=== PATIENT | female | born 1950 | race African-American/Black ===

== ENCOUNTER 2017-03-29 13:03 | Emergency (ER) | payer OTHER ==
[~2017-03-29] VITALS: Wt 100.0 kg
--- NOTE | 2017-03-29 13:17 | ERD ---
ER Documentation Chief Complaint Chief Complaint Right leg infection HPI The patient is a 76-year-old female, presenting to the ER because of acute on chronic right leg infection. She has been taking Cipro for the last 13 days with response, she was therefore sent to the ER for further evaluation. She denies fever, chills, neck pain, chest pain, abdominal pain, vomiting, dysuria, diarrhea. She does not smoke nor drink Past medical history: History of CHF, chronic kidney disease, diabetes mellitus Past surgical history: Lower extremity skin graft ROS All systems reviewed and are negative except as per history of present illness. Allergies Allergies: Coded Allergies: Penicillins (Verified Allergy, Severe, 03/29/17) Physical Exam Vitals Vital Signs Date Time Temp Pulse Resp B/P Pulse Ox O2 Delivery O2 Flow Rate FiO2 03/29/17 16:00 109 20 134/66 97 Nasal Cannula 2.0 03/29/17 15:18 93 14 94 Nasal Cannula 3.0 03/29/17 14:02 Nasal Cannula 2 03/29/17 13:16 98.8 80 18 136/67 95 Physical Exam Const: No acute distress. Head: Atraumatic. Eyes: Normal Conjunctiva. ENT: Normal External Ears, Nose and Mouth. Neck: Full range of motion. No meningismus. Resp: Clear to auscultation bilaterally. Cardio: Regular rate and rhythm. Abd: Soft, non distended, normal bowel sounds, non tender. Skin: No petechiae or rashes. Back: No midline or flank tenderness. Ext: Right lower extremity is with chronic skin discoloration with small vesicles, vague bilateral calf tenderness Neur: Awake and alert. No focal deficit Psych: Normal Mood and Affect. Result Diagram: 03/29/17 1350 03/29/17 1350 Results 24 hrs Laboratory Tests Test 03/29/17 13:50 03/29/17 14:45 03/29/17 15:40 White Blood Count 8.310^3/ul Red Blood Count 4.1910^6/ul Hemoglobin 11.6g/dl Hematocrit 39.5% Mean Corpuscular Volume 94.3fl Mean Corpuscular Hemoglobin 27.7pg Mean Corpuscular Hemoglobin Concent 29.4g/dl Red Cell Distribution Width 16.4% Platelet Count 19465^3/UL Mean Platelet Volume 11.0fl Neutrophils % 64.5% Lymphocytes % 20.7% Monocytes % 11.4% Eosinophils % 2.1% Basophils % 0.8% Nucleated Red Blood Cells % 0.0/100WBC Neutrophils # 5.310^3/ul Lymphocytes # 1.710^3/ul Monocytes # 0.910^3/ul Eosinophils # 0.210^3/ul Basophils # 0.110^3/ul Nucleated Red Blood Cells # 0.010^3/ul Prothrombin Time 12.9Sec Prothrombin Time Ratio 1.0 INR International Normalized Ratio 0.97 Activated Partial Thromboplast Time 30.8Sec Sodium Level 145mmol/L Potassium Level 5.6mmol/L Chloride Level 103mmol/L Carbon Dioxide Level 31mmol/L Anion Gap 17 Blood Urea Nitrogen 60mg/dl Creatinine 2.06mg/dl Glucose Level 168mg/dl Lactic Acid Level 1.7mmol/L 1.2mmol/L Calcium Level 9.3mg/dl Total Bilirubin 0.1mg/dl Direct Bilirubin 0.00mg/dl Indirect Bilirubin 0.1mg/dl Aspartate Amino Transf (AST/SGOT) 41IU/L Alanine Aminotransferase (ALT/SGPT) 28IU/L Alkaline Phosphatase 191IU/L Total Protein 9.4g/dl Albumin 4.4g/dl Globulin 5.00g/dl Albumin/Globulin Ratio 0.88 Urine Color STRAW Urine Clarity CLEAR Urine pH 6.0 Urine Specific [place] 1.008 Urine Ketones NEGATIVEmg/dL Urine Nitrite NEGATIVEmg/dL Urine Bilirubin NEGATIVEmg/dL Urine Urobilinogen NEGATIVEmg/dL Urine Leukocyte Esterase NEGATIVELeu/ul Urine Microscopic RBC 1/HPF Urine Microscopic WBC 2/HPF Urine Squamous Epithelial Cells FEW/HPF Urine Bacteria FEW/HPF Urine Hemoglobin NEGATIVEmg/dL Urine Glucose NEGATIVEmg/dL Urine Total Protein 1+mg/dl Current Medications Medications (Trade) Dose Ordered Sig/Eleazar Route PRN Reason Start Time Stop Time Status Last Admin Dose Admin Vancomycin HCl 250 ml @ 125 mls/hr ONCE IVPB 03/29/17 15:00 03/29/17 16:59 DC 03/29/17 15:52 Meropenem/Sodium Chloride (Merrem 500mg/50 ml(Pmx)) 50 ml @ 100 mls/hr ONCE STAT IVPB 03/29/17 15:04 03/29/17 15:33 DC 03/29/17 15:15 Morphine Sulfate (morphine) 4 mg ONCE STAT IV 03/29/17 15:05 03/29/17 15:07 DC 03/29/17 15:15 Ondansetron HCl (Zofran Inj) 4 mg ONCE STAT IV 03/29/17 15:05 03/29/17 15:07 DC 03/29/17 15:15 Sodium Polystyrene Sulfonate (Kayexalate) 30 gm ONCE STAT PO 03/29/17 15:06 03/29/17 15:10 DC 03/29/17 15:52 Albuterol (Proventil 0.5% (Neb)) 15 mg ONCE STAT INH 03/29/17 15:06 03/29/17 15:10 DC 03/29/17 15:18 Procedures/MDM [place] [id number] Radiology Main Line: [phone] DIAGNOSTIC IMAGING REPORT Patient: CHRISTELLE KEARNS : 1950 Age: 66 Sex: F MR #: [id number] DOS: 03/29/17 1335 Ordering MD: RUFUS DECKER MD Location: E/R Room/Bed: PROCEDURE: US Lower extremity Venous. CLINICAL INDICATION: Lower extremity pain and swelling TECHNIQUE: Multiple sonographic images of the bilateral lower extremity deep venous system was obtained utilizing grayscale, color-flow, compressive sonography and doppler imaging with augmentation. The images were reviewed on a PACS workstation. COMPARISON: None. FINDINGS: There is normal compressibility and flow within the bilateral common femoral, superficial femoral and popliteal veins. The tibial veins are not well visualized. IMPRESSION: No sonographic evidence for deep venous thrombosis. Tibial veins not well visualized. RPTAT: AA .Zeeshan Couch MD, MD Date Time Electronically viewed and signed by .Zeeshan Couch MD, MD on 03/29/2017 14:45 .P/ CC: RUFUS DECKER MD [address] [address] Radiology Main Line: [phone] DIAGNOSTIC IMAGING REPORT Patient: CHRISTELLE KEARNS : 1950 Age: 66 Sex: F MR #: [id number] DOS: 03/29/17 1335 Ordering MD: RUFUS DECKER MD Location: E/R Room/Bed: PROCEDURE: XR Chest. CLINICAL INDICATION: Sepsis . TECHNIQUE: Single frontal chest x-ray. COMPARISON: None. FINDINGS: The lungs are clear of acute infiltrates, edema, effusions, or masses. Low lung volumes with mild bibasilar atelectasis is present. Calcific atherosclerosis of the aorta is present.. The cardiomediastinal silhouette is unremarkable. The osseous structures are intact. IMPRESSION: No acute cardiopulmonary disease. Low lung volumes with mild bibasilar atelectasis. RPTAT: GG .Ezekiel Parra MD, MD Date Time Electronically viewed and signed by .Ezekiel Parra MD, MD on 03/29/2017 14:06 .L/ CC: RUFUS DECKER MD EKG: Read by emergency physician Rate/Rhythm: Normal Sinus Rhythm 82 beats/min QRS, ST, T-waves: No ST elevation, no T inversion, Septal Q waves Impression: Abnormal EKG MEDICAL MAKING DECISION: Patient is a 66-year-old female, presenting to the ER because of acute on chronic right lower extremity cellulitis, failed outpatient therapy, acute hyperkalemia. She was treated with vancomycin IV, Zosyn meropenem IV for acute on chronic cellulitis, morphine 2 mg IV for pain, Zofran formulary for nausea and albuterol 15 mg nebulizer over one hour and Kayexalate 30 g p.o. for acute hyperkalemia with good response. Critical Care: Time: 35 minutes excluding all billable procedures. Treatments/Evaluations: Close monitoring and treatment of unstable vital signs, cardiorespiratory, and neurologic status, while maintaining tight balance of fluid, respiratory, and cardiac interventions. The differential diagnoses considered include but are not limited to cellulitis , abscess, DVT, necrotizing fasciitis Departure Diagnosis: Primary Impression: Cellulitis of right lower limb Additional Impressions: Hyperkalemia Anemia Condition: Stable Comments I discussed the findings with the patient. I discussed the patient with her physician Dr. Parr at 4:20 pm who was made aware of the lab, the treatment, the patient condition. She accepted the patient and the patient is transferre to [facility] via ambulance RUFUS DECKER MD Mar 29, 2017 13:17
--- NOTE | 2017-03-29 14:06 | RADRPT ---
PROCEDURE: XR Chest. CLINICAL INDICATION: Sepsis . TECHNIQUE: Single frontal chest x-ray. COMPARISON: None. FINDINGS: The lungs are clear of acute infiltrates, edema, effusions, or masses. Low lung volumes with mild bi basilar atelectasis is present. Calcific atherosclerosis of the aorta is present.. The cardiomedias tinal silhouette is unremarkable. The osseous structures are intact. IMPRESSION: No acute cardiopulmonary disease. Low lung volumes with mild bibasilar atelectasis. RPTAT: GG .Ezekiel Parra MD, Date Time Electronically viewed and signed by .Ezekiel Parra MD, on 03/29/2017 14:06 .L/
[2017-03-29 14:08] LABS: BASOPHIL # 0.1 10^3/ul (0.0-0.1); BASOPHILS % 0.8 % (0.0-2.0); EOSINOPHILS # 0.2 10^3/ul (0.0-0.5); EOSINOPHILS % 2.1 % (0.0-7.0); HEMATOCRIT 39.5 % (37.0-47.0); HEMOGLOBIN 11.6 g/dl (12.0-16.0); LYMPHOCYTES # 1.7 10^3/ul (0.8-2.9); LYMPHOCYTES % 20.7 % (15.0-51.0); MEAN CORPUSCULAR HEMOGLOBIN 27.7 pg (29.0-33.0); MEAN CORPUSCULAR HGB CONC 29.4 g/dl (32.0-37.0); MEAN CORPUSCULAR VOLUME 94.3 fl (82.0-101.0); MONOCYTE # 0.9 10^3/ul (0.3-0.9); MONOCYTES % 11.4 % (0.0-11.0); NEUTROPHIL # 5.3 10^3/ul (1.6-7.5); NEUTROPHILS % 64.5 % (39.0-77.0); PLATELET COUNT 213 10^3/UL (140-415); RED BLOOD COUNT 4.19 10^6/ul (4.20-5.40); RED CELL DISTRIBUTION WIDTH 16.4 % (11.5-14.5); WHITE BLOOD COUNT 8.3 10^3/ul (4.8-10.8)
[2017-03-29 14:23] LABS: INR 0.97; PROTIME 12.9 Sec (12.2-14.2)
[2017-03-29 14:24] LABS: PARTIAL THROMBOPLASTIN TIME 30.8 Sec (25.0-35.0)
[2017-03-29 14:25] LABS: ALBUMIN 4.4 g/dl (3.3-4.9); ALBUMIN/GLOBULIN RATIO 0.88; BILIRUBIN,INDIRECT 0.1 mg/dl (0-1.1); BILIRUBIN,TOTAL 0.1 mg/dl (0.2-1.3); CALCIUM 9.3 mg/dl (8.4-10.2); CREATININE 2.06 mg/dl (0.44-1.00); POTASSIUM 5.6 mmol/L (3.5-5.1); TOTAL PROTEIN 9.4 g/dl (6.1-8.1)
--- NOTE | 2017-03-29 14:45 | RADRPT ---
PROCEDURE: US Lower extremity Venous. CLINICAL INDICATION: Lower extremity pain and swelling TECHNIQUE: Multiple sonographic images of the bilateral lower extremity deep venous system was obt ained utilizing grayscale, color-flow, compressive sonography and doppler imaging with augmentation. The images were reviewed on a PACS workstation. COMPARISON: None. FINDINGS: There is normal compressibility and flow within the bilateral common femoral, superficial femoral an d popliteal veins. The tibial veins are not well visualized. IMPRESSION: No sonographic evidence for deep venous thrombosis. Tibial veins not well visualized. RPTAT: AA .Zeeshan Couch MD, MD Date Time Electronically viewed and signed by .Zeeshan Couch MD, MD on 03/29/2017 14:45 .P/
[2017-03-29] MEDS ORDERED: VANCOMYCIN 1 GM (PMX) 250 ML IVPB SCH (15:00)
[2017-03-29] MEDS ORDERED: MEROPENEM 500MG/50 ML (PMX) 50 ML IVPB STA (15:04)
[2017-03-29] MEDS ORDERED: ONDANSETRON 4 MG INJ IV STA (15:05)
[2017-03-29] MEDS ORDERED: morphine 4 MG/ML VIAL IV STA (15:05)
[2017-03-29] MEDS ORDERED: ALBUTEROL 0.5% (NEB) 2.5 MG/0.5 ML AMP INH STA (15:06)
[2017-03-29] MEDS ORDERED: NA POLYST SULFON 15 GM/60 ML BTL PO STA (15:06)
[2017-03-29 15:19] LABS: ADD UMIC YES; UR ASCORBIC ACID NEGATIVE (NEGATIVE); UR BACTERIA FEW /HPF (NONE SEEN); UR BILIRUBIN (Dip) NEGATIVE (NEGATIVE); UR BLOOD (Dip) NEGATIVE (NEGATIVE); UR CLARITY CLEAR (CLEAR); UR COLOR STRAW (YELLOW); UR GLUCOSE (Dip) NEGATIVE (NEGATIVE); UR KETONES (Dip) NEGATIVE (NEGATIVE); UR LEUKOCYTE ESTERASE (Dip) NEGATIVE Leu/ul (NEGATIVE); UR NITRITE (Dip) NEGATIVE (NEGATIVE); UR RBC 1 /HPF (0-5); UR SPECIFIC GRAVITY (Dip) 1.008 (1.003-1.030); UR SQUAMOUS EPITHELIAL CELL FEW /HPF (FEW); UR TOTAL PROTEIN (Dip) 1+ mg/dl (NEGATIVE); UR UROBILINOGEN (Dip) NEGATIVE (NEGATIVE)
[2017-03-29 20:52] VITALS: BP 124/68; PULSE 95; RESP 16; TEMP 98.2
== END 2017-03-29 20:52 | disposition short-term general hospital (02) ==
LOC: E/R 13:03
DX: L03.115 Cellulitis of right lower limb (principal); E87.5 Hyperkalemia; D64.9 Anemia, unspecified; E11.9 Type 2 diabetes mellitus without complications; I12.9 Hypertensive chronic kidney disease with stage 1 through stage 4 chronic kidney disease, or unspecified chronic kidney disease; N18.9 Chronic kidney disease, unspecified; I50.9 Heart failure, unspecified
CPT/HCPCS: 36415; 71010; 80053; 81001; 82962; 83605; 85025; 85610; 85730; 87040; 87070; 87086; 93005; 93970; 94664; 96374; 96375; J2185; J2270; J2405; J3370; Z7502; Z7610